=== PATIENT | male | born 1995 | race Caucasian/White ===

== ENCOUNTER → 2025-02-05 19:03 | Outpatient (CLI) | payer OTHER, SELFPAY ==
--- NOTE | 2025-02-05 19:07 | DI.RAD.S_ITS ---
PROCEDURE: XR FINGER RT MIN 2V INDICATIONS: crush injury distal finger TECHNIQUE: AP hand, 2 views of the 5th finger(s) acquired. COMPARISON: None. FINDINGS: Bones: Nondisplaced or minimally displaced transverse fracture through 5th distal phalangeal tuft. No other fracture or dislocation. No suspicious bony lesions. Soft tissues: Soft tissue swelling surrounding distal portion of 5th finger is seen. No suspicious soft tissue calcifications. IMPRESSION: Nondisplaced or minimally displaced transverse fracture through 5th distal phalangeal tuft with surrounding soft tissue swelling. Dictated by: King Noyola M.D. on 02/05/2025 at 19:29 Approved by: King Noyola M.D. on 02/05/2025 at 19:30
== END ==
PROVIDERS: Referring Provider Student in an Organized Health Care Education/Training Program; Visit Provider Student in an Organized Health Care Education/Training Program
DX: S62.636A Displaced fracture of distal phalanx of right little finger, initial encounter for closed fracture (principal); S67.196A Crushing injury of right little finger, initial encounter
CPT/HCPCS: 73140